=== PATIENT | male | born 1935 ===

== ENCOUNTER 2021-05-12 16:04 | Outpatient (REF) | payer MEDICARE, OTHER, SELFPAY ==
[2021-05-12 18:41] LABS: Appearance Urine CLEAR; Color Urine YELLOW; Glucose Urine UA NEG (NEG); Leukocyte Esterase Urine NEG (NEG); Nitrite Urine NEG (NEG); Urine Blood NEG (NEG); Urine Ketones NEG (NEG); Urine Protein TRACE MG/DL (NEG-TRACE)
== END 2021-05-12 16:05 | disposition home or self-care (01) ==
LOC: HO.MANLNP 16:04
PROVIDERS: PCP Physician Assistant; Visit Provider Physician Assistant
DX: N39.0 Urinary tract infection, site not specified (principal)
CPT/HCPCS: 81003